=== PATIENT | female | born 1940 | race Caucasian/White ===

== ENCOUNTER 2016-09-02 10:48 | Emergency (ER) | payer OTHER ==
[~2016-09-02] VITALS: Ht 149.9 cm; Wt 63.5 kg
[~2016-09-02 10:48] MED LIST: ASPI81EC98 PO; CALC600C7 PO; HYDR-4446 PO; LEVO25SO PO; LOSA100T1 PO; METO-50 PO; [UNRECOGNIZED DRUG - CODE] PO
[2016-09-02 10:51] VITALS: BP 98/54
[2016-09-02] MEDS ORDERED: NACL 0.9% 1,000 ML IV ONE ×2 (11:05→11:55)
--- NOTE | 2016-09-02 11:05 | NUR ---
76/F STEVE FROM [facility] FOR EVALUATION OF GENERALIZED WEAKNESS X3 HOURS. PT STATES SHE ACCIDENTALLY TOOK 2 HTN MEDS INSTEAD OF 1 LAST NOC. PT DENIES ANY N/V OR DIZZINESS. PT AMB WITH STEADY GAIT TO SUSAN. DR. REYES AT BEDSIDE.
--- NOTE | 2016-09-02 11:11 | NUR ---
LAB AT BEDSIDE.
[2016-09-02 11:19] LABS: BASOPHILS # (AUTO) 0.1 K/uL (0.00-0.22); BASOPHILS % (AUTO) 0.8 % (0.0-2.0); EOSINOPHILS # (AUTO) 0.1 K/uL (0-0.4); EOSINOPHILS % (AUTO) 1.8 % (0.0-4.0); HEMOGLOBIN 13.1 g/dL (12.0-16.0); LYMPHOCYTES # (AUTO) 1.6 K/uL (2.5-16.5); LYMPHOCYTES % (AUTO) 24.4 % (20.5-51.1); MEAN CORPUSCULAR HEMOGLOBIN 30 pg (27-31); MEAN CORPUSCULAR HGB CONC 34 g/dL (33-37); MEAN CORPUSCULAR VOLUME 88 fL (80-94); MONOCYTES # (AUTO) 0.3 K/uL (0.8-1.0); MONOCYTES % (AUTO) 4.1 % (1.7-9.3); NEUTROPHILS # (AUTO) 4.4 K/uL (1.8-7.7); NEUTROPHILS % (AUTO) 68.9 % (42.2-75.2); PLATELET COUNT (AUTO) 218 K/uL (140-450); RED BLOOD CELL COUNT(AUTO) 4.42 MIL/uL (4.20-5.40); RED CELL DISTRIBUTION WIDTH 12.5 % (11.6-13.7); WHITE BLOOD COUNT (AUTO) 6.5 K/uL (4.8-10.8)
--- NOTE | 2016-09-02 11:35 | NUR ---
22G IV TO LAC. IVF GIVEN PER MAR. PT OLIVER WELL. PT PLACED ON MONITOR. URINE CUP LEFT AT BEDSIDE. PT STS CANNOT VOID AT THIS TIME. EKG DONE AT BEDSIDE.
[2016-09-02 11:43] LABS: ANION GAP 9.4 (8-16); CALCIUM 8.7 mg/dL (8.5-10.1); CARBON DIOXIDE 30.5 mmol/L (21-32); CHLORIDE 101 mmol/L (98-107); CREATININE 1.3 mg/dL (0.6-1.3); GLUCOSE 115 mg/dL (74-106); POTASSIUM 3.9 mmol/L (3.5-5.1); SODIUM SERUM 137 mmol/L (136-145); UREA NITROGEN, BLOOD 19 mg/dL (7-18)
[2016-09-02 11:54] LABS: ALKALINE PHOSPHATASE 83 U/L (46-116); ASPARTATE AMINOTRANSFERASE 23 U/L (15-37); TOTAL BILIRUBIN 0.5 mg/dL (0.0-1.0)
[2016-09-02 12:02] LABS: ALANINE AMINOTRANSFERASE 27 U/L (12-78); ALBUMIN 3.5 g/dL (3.4-5.0)
--- NOTE | 2016-09-02 12:20 | NUR ---
BP 102/59. DR. REYES MADE AWARE. PT READY FOR DC. SPEAKING WITH PT REGARDING TRANSPORTATION BACK TO [facility]. STS WILL CALL FRIEND FOR [facility].
[2016-09-02 12:23] LABS: CREATINE KINASE MB 1.5 ng/mL (0-3.6)
[2016-09-02 13:02] VITALS: BP 105/62
--- NOTE | 2016-09-02 13:03 | NUR ---
Patient discharged with v/s stable. Written and verbal after care instructions given and explained. Patient alert, oriented and verbalized understanding of instructions. Ambulatory with steady gait. All questions addressed prior to discharge. ID band removed. Patient advised to follow up with PMD. Patient educated on indication of medication including possible reaction and side effects OF BLOOD PRESSURE. Opportunity to ask questions provided and answered.
== END 2016-09-02 13:03 | disposition home or self-care (01) ==
LOC: MED 10:48
DX: I95.89 Other hypotension (principal); Z79.82 Long term (current) use of aspirin; Z79.899 Other long term (current) drug therapy
CPT/HCPCS: 36415; 80053; 82550; 82553; 84484; 85025; 93005; 99285; J7030